=== PATIENT | male | born 1990 | race Caucasian/White ===

== ENCOUNTER 2017-11-04 22:50 | Emergency (ER) | payer SELFPAY ==
[~2017-11-04] VITALS: Ht 175.3 cm; Wt 60.0 kg
[~2017-11-04 22:50] MED LIST: CYCL-36 PO; DICL75 PO
[2017-11-04 22:56] VITALS: BP 130/84; PULSE 125; RESP 15; TEMP 98.7; O2SAT 99
[2017-11-04] MEDS ORDERED: IBUPROFEN 600 MG TAB PO ONE (23:00)
[2017-11-04] MEDS ORDERED: LIDOCAINE 2%/EPINEPHrine 1:100,000 20ML MDV NERV BLOCK ONE (23:00)
[2017-11-04] MEDS ORDERED: oxyCODONE/ACETAMINOPHEN 5 MG/325 MG TAB PO ONE (23:00)
[2017-11-04] MEDS ORDERED: AMOXICILLIN/CLAVULANATE K 875 MG TAB PO ONE (23:00)
--- NOTE | 2017-11-04 23:02 | PD ---
HPI Chief Complaint: Bite or Sting Time Seen by Provider: 22:57 Travel History International Travel<30 days: No Contact w/Intl Traveler<30days: No Traveled to known affect area: No History of Present Illness HPI Pt is a 26-year-old male who was playing with his dog and the dog his right forearm leaving a L-shaped gash 7 cm exposing the extensor tendons on the radial aspect of his volar surface of his right forearm. He has localized pain forearm and decreased sensation in the radial distribution on his index and third finger. He has full range of motion good grasp and extension good flexion. Pain worsened with hand movements Patient is not up-to-date with his tetanus shot he has no known allergies he will need Augmentin washout of the wound closure IM tetanus will be given as well as medication to prevent infection. Incident happened just prior to arrival. His dog has all his shots and is up-to-date [facility] Social History Tobacco Use: No (unknown tobacco usage) Allergies-Medications (Allergen,Severity, Reaction): Coded Allergies: No Known Allergies (Unverified Adverse Reaction, Unknown, 11/04/17) Reported Meds & Prescriptions Reported Meds & Active Scripts Active [place] (Hydrocodone-Acetaminophen) 5 Mg-325 Mg Tab 1 Tab PO Q4H PRN Ibuprofen 600 Mg Tab 600 Mg PO Q6H PRN Augmentin (Amoxicillin-Clavulanate) 875-125 Mg Tab 1 Tab PO BID 10 Days Review of Systems Except as stated in HPI: all other systems reviewed are Neg Skin: Positive Other (7cm L-shaped laceration just prior to arrival) Physical Exam Narrative GENERAL: SKIN: Warm and dry. 7 cm L-shaped laceration exposing the tendons below right forearm. Numb sensation in the dorsal aspect of the second and third finger from MCP to the PIP radial nerve. HEAD: Atraumatic. Normocephalic. EYES: Pupils equal and round. No scleral icterus. No injection or drainage. ENT: No nasal bleeding or discharge. Mucous membranes pink and moist. NECK: Trachea midline. No JVD. CARDIOVASCULAR: Regular rate and rhythm. RESPIRATORY: No accessory muscle use. Clear to auscultation. Breath sounds equal bilaterally. GASTROINTESTINAL: Abdomen soft, non-tender, nondistended. Hepatic and splenic margins not palpable. MUSCULOSKELETAL: Extremities right forearm has a 7 cm L-shaped laceration without clubbing, cyanosis, or edema. NEUROLOGICAL: Awake and alert. No obvious cranial nerve deficits. Motor grossly within normal limits. Five out of 5 muscle strength in the arms and legs. Normal speech. PSYCHIATRIC: Appropriate mood and affect; insight and judgment normal. Data Data Last Documented VS Vital Signs Date Time Temp Pulse Resp B/P (MAP) Pulse Ox O2 Delivery O2 Flow Rate FiO2 11/04/17 23:00 125 14 11/04/17 22:56 98.7 130/84 (99) 99 Orders Orders Amoxicil-Clavulanate (Augmentin) (11/04/17 23:00) Oxycodone-Acetamin 5-325 Mg (Percocet (11/04/17 23:00) Ibuprofen (Motrin) (11/04/17 23:00) Lidocai-Epi 2%-1:100,000 Inj (Xylocaine- (11/04/17 23:00) Tetanus/Diphtheria Tox Adult (Tetanus/Di (11/04/17 23:15) Forearm (2vws) (11/04/17 ) Ed Discharge Order (11/05/17 00:52) MDM Medical Decision Making Medical Screen Exam Complete: Yes Emergency Medical Condition: Yes Differential Diagnosis bite puncture vs slice from fangs vs osteomyelitis vs bone injury other Narrative Course X-ray tetanus updated Augmentin given to cover bacteria from dog mouth pain pill given lack repair is done and patient is discharged to follow-up in 10 days instructed to look for infection as well as compartment syndrome Augmentin twice a day 10 days and follow-up return to return to our ER or to his primary care doctor Procedures Procedure Narrative Laceration repair note patient has a 7 cm L-shaped laceration to his right forearm and a puncture wound single on the opposite side. Irrigation high pressure in both wounds to wash out bacteria from the dog's mouth. Then anesthetized with 2% with epi lidocaine 5 cc infiltrated into the L-shaped then irrigated with high-pressure normal saline 200 cc washed through the wound and the puncture wound then using 40 and 3-0 Prolene I did a total of 8 sutures good wound approximation patient tolerated procedure well bacitracin applied sterile dressing sutures out in 10 days patient is informed about the risk of compartment syndrome and what to look for. I show him pain with passive extension of his digits with lead to need to return. Diagnosis Primary Impression: Dog bite Qualified Codes: W54.0XXA - Bitten by dog, initial encounter Additional Impression: Laceration of forearm, right Qualified Codes: S51.811A - Laceration without foreign body of right forearm, initial encounter Scripts Hydrocodone-Acetaminophen ([place]) 5 Mg-325 Mg Tab 1 TAB PO Q4H Y for PAIN, #10 TAB 0 Refills Prov: Kolby Ordonez MD 11/05/17 Ibuprofen (Ibuprofen) 600 Mg Tab 600 MG PO Q6H Y for Pain/Inflammation, #30 TAB 0 Refills Prov: Kolby Ordonez MD 11/05/17 Amoxicillin-Clavulanate (Augmentin) 875-125 Mg Tab 1 TAB PO BID for Infection for 10 Days, #20 TAB 0 Refills Prov: Kolby Ordonez MD 11/05/17 Disposition: 01 DISCHARGE HOME Condition: Good Kolby Ordonez MD Nov 04, 2017 23:02
[2017-11-04] MEDS ORDERED: TETANUS/DIPHTHERIA TOXOID ADULT 0.5 ML VIAL IM ONE (23:15)
--- NOTE | 2017-11-04 23:44 | RADRPT ---
EXAM DATE/TIME: 11/04/2017 23:32 [facility] COMPARISON: No previous studies available for comparison. INDICATIONS : Patient complains of rt forearm pain and laceration after being bit by dog. MEDICAL HISTORY : None. SURGICAL HISTORY : None. ENCOUNTER: Initial ACUITY: 1 day PAIN SCORE: 7/10 LOCATION: Right Forearm FINDINGS: There is a soft tissue injury at the distal lateral forearm. The bony structures are intact. A radiod ense foreign body is not clearly seen. CONCLUSION: Soft tissue injury. Humberto Chan MD on November 04, 2017 at 23:41 Board Certified Radiologist. This report was verified electronically.
[2017-11-05] MEDS ORDERED: IBUP-232 PO (00:42)
[2017-11-05] MEDS ORDERED: AUGM875T3 PO (00:42)
[2017-11-05] MEDS ORDERED: NORC5TAB PO (00:43)
== END 2017-11-05 01:00 | disposition home or self-care (01) ==
LOC: NEPC 22:50
DX: S51.811A Laceration without foreign body of right forearm, initial encounter (principal); W54.0XXA Bitten by dog, initial encounter; Z23 Encounter for immunization
CPT/HCPCS: 12002; 73090; 90471; 90714